=== PATIENT | female | born 1980 | race Caucasian/White ===

== ENCOUNTER 2021-03-07 17:03 | Emergency (ER) | payer OTHER ==
--- NOTE | 2021-03-07 18:36 | EDM.PDOC ---
ED HPI GENERAL MEDICAL PROBLEM - General Chief Complaint: General Stated Complaint: PALPITATIONS AND CHEST DISCOMFORT Time Seen by Provider: 03/07/21 18:15 Source of Information: Reports: Patient History Limitations: Reports: No Limitations - History of Present Illness INITIAL COMMENTS - FREE TEXT/NARRATIVE: Tiny is a 40-year-old female presenting to the ED for evaluation of p alpitations, tachycardia, chest tightness with a dull ache across the anterior left chest, and unsettled stomach without nausea or vomiting, all of which started around noon today when the patient was shopping with her . The patient is from [place], [place] and is here visiting her sister. She denies any fever, chills, cough, significant shortness of breath, headache or back pain, loss of taste or smell. The patient has a history of anxiety and panic attacks but states this feels different than when she had her panic attack. She is currently on a vacation so she does not believe that she is under any stressors right now. - Related Data Allergies Allergy/AdvReac Type Severity Reaction Status Date / Time sulfamethoxazole Allergy Hives Verified 03/07/21 18:14 [From Bactrim] trimethoprim [From Bactrim] Allergy Hives Verified 03/07/21 18:14 Home Meds: Home Meds NK [No Known Home Meds] 03/07/21 [History] Past Medical History [employer] History: Reports: Psychiatric History: Reports: Panic Attack Social & Family History - Tobacco Use Tobacco Use Status *Q: Unknown Ever Used Tobacco ED ROS GENERAL - Review of Systems Review Of Systems: See Below Constitutional: Reports: No Symptoms HEENT: Reports: No Symptoms Respiratory: Reports: No Symptoms Cardiovascular: Reports: Chest Pain (Dull ache across the anterior left chest), Lightheadedness, Palpitations (Tachycardia and palpitations) Endocrine: Reports: No Symptoms GI/Abdominal: Reports: Other (Unsettled stomach since eating breakfast this morning. Patient took Pepcid when she woke up this morning and Pepto-Bismol after breakfast.) : Reports: No Symptoms Musculoskeletal: Reports: No Symptoms Skin: Reports: No Symptoms Neurological: Reports: Dizziness (Lightheadedness) Psychiatric: Reports: Anxiety Hematologic/Lymphatic: Reports: No Symptoms Immunologic: Reports: No Symptoms ED EXAM, GENERAL - Physical Exam Exam: See Below Exam Limited By: No Limitations General Appearance: Alert, No Apparent Distress, Anxious Eye Exam: Bilateral Eye: EOMI, PERRL Throat/Mouth: Normal Inspection, Normal Lips, Normal Oropharynx, Normal Voice, No Airway Compromise Head: Atraumatic, Normocephalic Neck: Normal Inspection, Supple, Non-Tender, Full Range of Motion. No: Lymphadenopathy (R), Lymphadenopathy (L) Respiratory/Chest: No Respiratory Distress, Lungs Clear, Normal Breath Sounds Cardiovascular: Normal Peripheral Pulses, Regular Rate, Rhythm, No Murmur, Tachycardia Peripheral Pulses: 2+: Radial (L), Radial (R) GI/Abdominal: Normal Bowel Sounds, Soft, Non-Tender. No: Guarding, Rebound Extremities: Normal Inspection, Normal Range of Motion Neurological: Alert, Oriented, Normal Cognition, No Motor/Sensory Deficits Psychiatric: Normal Affect, Normal Mood Skin Exam: Warm, Dry, Intact, Erythema (Mild flushing of the face) Lymphatic: No Adenopathy #1 Interpretation EKG Date: 03/07/21 Time: 18:48 Rhythm: NSR Rate (Beats/Min): 76 [place]: Normal P-Wave: Present QRS: Normal ST-T: Normal QT: Normal Comparison: NA - No Prior EKG Course - Vital Signs Last Recorded V/S: Last Vital Signs Temp 36.5 C 03/07/21 18:18 Pulse 96 03/07/21 18:18 Resp 17 03/07/21 18:18 BP 140/83 03/07/21 18:18 Pulse Ox 100 03/07/21 18:18 - Orders/Labs/Meds Orders: Active Orders 24 hr Category Date Time Status EKG Documentation Completion [RC] ASDIRECTED Care 03/07/21 18:30 Active Chest 2V [CR] Stat Exams 03/07/21 18:29 Taken EKG 12 Lead [EK] Routine Ther 03/07/21 18:29 Ordered Labs: Laboratory Tests 03/07/21 03/07/21 Range/Units 18:39 18:39 WBC 10.0 (4.5-11.0) K/uL RBC 4.24 (3.30-5.50) M/uL Hgb 12.7 (12.0-15.0) g/dL Hct 38.4 (36.0-48.0) % MCV 91 (80-98) fL MCH 30 (27-31) pg MCHC 33 (32-36) % Plt Count 361 (150-400) K/uL Neut % (Auto) 86.2 H (36-66) % Lymph % (Auto) 7.5 L (24-44) % [place] % (Auto) 5.3 (2-6) % Eos % (Auto) 0.8 L (2-4) % Baso % (Auto) 0.2 (0-1) % Sodium 141 (140-148) mmol/L Potassium 3.3 L (3.6-5.2) mmol/L Chloride 102 (100-108) mmol/L Carbon Dioxide 25 (21-32) mmol/L Anion Gap 17.3 H (5.0-14.0) mmol/L BUN 14 (7-18) mg/dL Creatinine 1.0 (0.6-1.0) mg/dL Est Cr Clr Drug Dosing 70.71 mL/min Estimated GFR (MDRD) > 60 (>60) Glucose 112 H (74-106) mg/dL Calcium 8.8 (8.5-10.1) mg/dL Total Bilirubin 0.2 (0.2-1.0) mg/dL AST 23 (15-37) U/L ALT 46 (12-78) U/L Alkaline Phosphatase 79 (46-116) U/L Troponin I < 0.017 (0.000-0.056) ng/mL C-Reactive Protein 0.29 (0.0-0.3) mg/dL Total Protein 6.8 (6.4-8.2) g/dL Albumin 3.5 (3.4-5.0) g/dL Globulin 3.3 (2.3-3.5) g/dL Albumin/Globulin Ratio 1.1 L (1.2-2.2) TSH, Ultra Sensitive 1.637 (0.358-3.740) uIU/mL - Radiology Interpretation Free Text/Narrative:: Reviewed the patient's 2 view chest x-ray which is essentially normal. - Re-Assessments/Exams Free Text/Narrative Re-Assessment/Exam: 03/07/21 20:34 I reviewed the patient's chest x-ray which was essentially normal. Labs were also reviewed including a CBC, comprehensive metabolic panel, CRP, troponin, and TSH. The comprehensive metabolic panel is significant for a slightly low potassium of 3.3 but otherwise is unremarkable. TSH and troponin are both normal. CRP is normal. EKG is unremarkable showing normal sinus rhythm at a rate of 76 bpm. Overall, I believe that this was likely anxiety driven. I reassured her that I did not see anything worrisome in her work-up. She may want to consider talking with her primary care provider about an anxiolytic or starting an SSRI or SNRI if her anxiety becomes more frequent. At this time, I believe that she is suitable for discharge in satisfactory condition. Departure - Departure Time of Disposition: 20:36 Disposition: Home, Self-Care 01 Clinical Impression: Anxiety reaction, Hypokalemia - Discharge Information Instructions: Hypokalemia, Managing Anxiety, Adult Referrals: PCP,None [Primary Care Provider] - Forms: ED Department Discharge Care Plan Goals: Your work-up today was unremarkable for any significant findings. Your cardiac and thyroid work-up was normal. Your chest x-ray and labs were otherwise unrem arkable exception of a mildly low potassium. I would recommend potassium supplementation with either bananas or orange juice. You may want to talk to your primary care provider about an anxiolytic like lorazepam that can used as needed. If episodes become more frequent you may want to think about the use of an SSRI or SNRI like Paxil, fluoxetine, or sertraline. Your time in the city with your sister. Sepsis Event Note (ED) - Evaluation Sepsis Screening Result: No Definite Risk - Focused Exam Vital Signs: Vital Signs Temp Pulse Resp BP Pulse Ox 03/07/21 18:18 36.5 C 96 17 140/83 100 03/07/21 17:38 36.5 C 96 17 140/83 100 - Problem List & Annotations (1) Anxiety reaction SNOMED Code(s): 87801945 Code(s): F41.1 - GENERALIZED ANXIETY DISORDER Status: Acute Priority: Medium Current Visit: Yes (2) Hypokalemia SNOMED Code(s): 31650995 Code(s): E87.6 - HYPOKALEMIA Status: Acute Priority: Medium Current Visit: Yes - Problem List Review Problem List Initiated/Reviewed/Updated: Yes - My Orders Last 24 Hours: My Active Orders 03/07/21 18:29 Chest 2V [CR] Stat EKG 12 Lead [EK] Routine 03/07/21 18:30 EKG Documentation Completion [RC] ASDIRECTED - Assessment/Plan Last 24 Hours: My Active Orders 03/07/21 18:29 Chest 2V [CR] Stat EKG 12 Lead [EK] Routine 03/07/21 18:30 EKG Documentation Completion [RC] ASDIRECTED
[2021-03-07] MEDS ORDERED: LORazepam 0.5 MG Tab PO ONE (20:45)
--- NOTE | 2021-03-10 08:53 | CR ---
CHEST: 2 view CLINICAL HISTORY:Palpitations COMPARISON:None FINDINGS: The heart size, pulmonary vascularity and hilar structures are normal. No infiltrate effusion or pneumothorax is seen. IMPRESSION: No acute cardiopulmonary process.
== END 2021-03-07 21:05 | disposition home or self-care (01) ==
LOC: JP.ED 17:03
DX: F41.1 Generalized anxiety disorder (principal); E87.6 Hypokalemia; Z88.1 Allergy status to other antibiotic agents
CPT/HCPCS: 36415; 71046; 80053; 84443; 84484; 85025; 86140; 93005; 99285; A9270